=== PATIENT | female | born 1990 | race Caucasian/White ===

== ENCOUNTER 2023-09-09 12:46 | Emergency (ER) | payer MEDICAID ==
[~2023-09-09] VITALS: Ht 165.1 cm; Wt 63.4 kg
[2023-09-09 13:12] VITALS: BP 126/74; PULSE 84; RESP 16; TEMP 98; O2SAT 97
[2023-09-09 13:13] LABS: BASOPHILS # (AUTO) 0.1 X10'3 (0-0.2); BASOPHILS % (AUTO) 0.8 % (0-1); EOSINOPHILS # (AUTO) 0.1 X10'3 (0-0.9); EOSINOPHILS % (AUTO) 1.2 % (0-6); HEMATOCRIT 44.9 % (35.0-45.0); HEMOGLOBIN 15.1 g/dl (12.0-16.0); LYMPHOCYTES # (AUTO) 2.5 X10'3 (1.1-4.8); LYMPHOCYTES % (AUTO) 26.5 % (21-51); MEAN CORPUSCULAR HEMOGLOBIN 29.4 PG (27.0-31.0); MEAN CORPUSCULAR HGB CONC 33.6 g/dL (33.0-36.5); MEAN CORPUSCULAR VOLUME 87.5 FL (78-98); MEAN PLATELET VOLUME 9.3 FL (7.4-10.4); MONOCYTES # (AUTO) 0.7 X10'3 (0-0.9); MONOCYTES % (AUTO) 7.3 % (2-12); NEUTROPHILS # (AUTO) 6.2 X10'3 (1.8-7.7); NEUTROPHILS % (AUTO) 64.2 % (42-75); PLATELET COUNT 295 X10'3 (140-440); RED BLOOD COUNT 5.13 X10'6 (4.20-5.60); RED CELL DISTRIBUTION WIDTH 13.3 % (11.5-14.5); WHITE BLOOD COUNT 9.6 X10'3 (4.5-11.0)
[2023-09-09 13:30] LABS: ALANINE AMINOTRANSFERASE 27 U/L (12-78); ALBUMIN 4.2 G/DL (3.4-5.0); ALBUMIN/GLOBULIN RATIO 1.1 (1.1-1.5); ALKALINE PHOSPHATASE 67 IU/L (46-116); ANION GAP 7 (8-16); BILIRUBIN,TOTAL 0.5 MG/DL (0.1-1.0); BLOOD UREA NITROGEN 9 MG/DL (7-18); CALCIUM 9.2 MG/DL (8.5-10.1); CHLORIDE 101 MMOL/L (99-107); CREATININE 0.69 MG/DL (0.40-0.90); GLUCOSE 82 MG/DL (70-104); SODIUM 134 MMOL/L (135-145); TOTAL CARBON DIOXIDE 25.9 MMOL/L (24-32); TOTAL PROTEIN 8.1 G/DL (6.4-8.2); eCRCL 106 ML/MIN; eGFR > 90 ML/MIN
[2023-09-09 13:37] LABS: PRO BRAIN NATRIURETIC PEPTIDE 36 PG/ML (0-125)
[2023-09-09 13:50] LABS: ASPARTATE AMINO TRANSFERASE 28 U/L (10-37); POTASSIUM 3.5 MMOL/L (3.5-5.1)
[2023-09-09 14:17] LABS: D-DIMER < 0.19 MG/L FEU (0-0.50)
[2023-09-09] MEDS ORDERED: METH4TAB81 PO (14:23)
[2023-09-09] MEDS ORDERED: ALBU18HF2 INH (14:23)
== END 2023-09-09 14:52 | disposition home or self-care (01) ==
LOC: ER 12:47
DX: J20.9 Acute bronchitis, unspecified (principal); R06.02 Shortness of breath; J45.909 Unspecified asthma, uncomplicated; Z79.899 Other long term (current) drug therapy
CPT/HCPCS: 36415; 71045; 80053; 83880; 84484; 85025; 85379; 93005; 99285

== ENCOUNTER 2023-10-12 09:37 | Emergency (ER) | payer MEDICAID ==
[~2023-10-12] VITALS: Ht 165.1 cm; Wt 64.3 kg
[~2023-10-12 09:37] MED LIST: ALBU18HF2 INH; METH4TAB81 PO
[2023-10-12 09:41] VITALS: TEMP 97.8
[2023-10-12 10:19] LABS: BASOPHILS # (AUTO) 0.1 X10'3 (0-0.2); BASOPHILS % (AUTO) 1.5 % (0-1); EOSINOPHILS # (AUTO) 0.1 X10'3 (0-0.9); EOSINOPHILS % (AUTO) 1.3 % (0-6); HEMATOCRIT 42.8 % (35.0-45.0); HEMOGLOBIN 14.1 g/dl (12.0-16.0); LYMPHOCYTES # (AUTO) 1.9 X10'3 (1.1-4.8); LYMPHOCYTES % (AUTO) 31.1 % (21-51); MEAN CORPUSCULAR VOLUME 87.8 FL (78-98); MEAN PLATELET VOLUME 9.1 FL (7.4-10.4); MONOCYTES # (AUTO) 0.5 X10'3 (0-0.9); MONOCYTES % (AUTO) 8.1 % (2-12); NEUTROPHILS # (AUTO) 3.5 X10'3 (1.8-7.7); PLATELET COUNT 259 X10'3 (140-440); RED BLOOD COUNT 4.87 X10'6 (4.20-5.60); WHITE BLOOD COUNT 6.1 X10'3 (4.5-11.0)
[2023-10-12 10:34] LABS: ALANINE AMINOTRANSFERASE 29 U/L (12-78); ALBUMIN 3.8 G/DL (3.4-5.0); ALKALINE PHOSPHATASE 60 IU/L (46-116); ANION GAP 11 (8-16); ASPARTATE AMINO TRANSFERASE 19 U/L (10-37); BILIRUBIN,TOTAL 0.5 MG/DL (0.1-1.0); BLOOD UREA NITROGEN 6 MG/DL (7-18); BUN/CREATININE RATIO 8.8 (10.0-20.0); CALCIUM 8.9 MG/DL (8.5-10.1); CHLORIDE 104 MMOL/L (99-107); CREATININE 0.68 MG/DL (0.40-0.90); GLUCOSE 78 MG/DL (70-104); POTASSIUM 3.6 MMOL/L (3.5-5.1); SODIUM 140 MMOL/L (135-145); TOTAL CARBON DIOXIDE 25.4 MMOL/L (24-32); TOTAL PROTEIN 7.6 G/DL (6.4-8.2); eCRCL 108 ML/MIN; eGFR > 90 ML/MIN
[2023-10-12 10:40] LABS: C-REACTIVE PROTEIN < 0.05 MG/DL (0.0-0.5)
[2023-10-12 10:53] VITALS: BP 114/80; PULSE 78; RESP 16; O2SAT 100
[2023-10-12] MEDS ORDERED: LORazepam 2 mg/ml vial IM ONE (12:40)
[2023-10-12 14:10] LABS: URINE HCG NEGATIVE (NEG)
== END 2023-10-12 15:01 | disposition home or self-care (01) ==
LOC: ER 09:38
DX: R20.2 Paresthesia of skin (principal); R06.02 Shortness of breath; J45.909 Unspecified asthma, uncomplicated; Z79.899 Other long term (current) drug therapy
CPT/HCPCS: 36415; 70450; 80053; 81025; 85025; 85651; 86140; 93971; 96372; 99285; J2060

== ENCOUNTER 2023-10-17 12:50 | Emergency (ER) | payer MEDICAID ==
[~2023-10-17] VITALS: Ht 165.1 cm; Wt 64.6 kg
[2023-10-17 13:00] VITALS: BP 127/75; PULSE 80; RESP 16; TEMP 98.5; O2SAT 99
[2023-10-17] MEDS ORDERED: HYDR-3686 PO (16:27)
== END 2023-10-17 16:48 | disposition home or self-care (01) ==
LOC: ER 12:50
DX: R25.1 Tremor, unspecified (principal); R13.10 Dysphagia, unspecified; R42 Dizziness and giddiness; F41.9 Anxiety disorder, unspecified; J45.909 Unspecified asthma, uncomplicated; J34.3 Hypertrophy of nasal turbinates; Z79.899 Other long term (current) drug therapy
CPT/HCPCS: 70551; 99284

== ENCOUNTER 2025-04-15 11:55 | Emergency (ER) | payer MEDICAID ==
[~2025-04-15] VITALS: Ht 162.6 cm; Wt 65.9 kg
--- NOTE | 2025-04-15 13:37 | Physician Documentation ---
History of Present Illness ~ Chief Complaint: See Chief Complaint Stated Complaint: LOW BLOOD PRESSURE Time Seen by MD: 12:30 OK to notify your PCP?: Yes Primary Medical Doctor: [facility] Source: patient, family Mode of Arrival: POV Exam Limitations: no limitations HPI 34-year-old female who is here with concern about wanting to stop verapamil 180 mg which she has only taken for 2days. She states she took the verapamil for two days but felt the triggered her to have a severe migraine. She was started on it for migraine headaches as well as a vestibular issue. She is followed by a neurologist down at [facility]. She did send a message to the neurologist but given the fact that it is the weekend she states she does not believe she will hear back from him until next week and wanted to know if it would be okay to stopped the medication as she does not want to continue taking it. She was also concerned because when she checked her blood pressure on her home machine that her blood pressure was 80 over 50. Medication Reconciliation Allergies: Coded Allergies: No Known Allergies (Unverified , 04/15/25) Scheduled Methylprednisolone (Medrol Dosepak), 0 PO UD Scheduled PRN Albuterol Sulfate (Ventolin Hfa), 2 PUFFS INH Q4HPRN PRN for wheezing Past Medical History Past Medical History: Asthma, *DERMATOLOGY* Past Surgical History: noncontributory Alcohol Use: None Drug Use: none Review of Systems All Other Systems at this time: Reviewed and Negative Physical Exam Vital Signs: Temperature: 97.5, Source: Temporal, Heart Rate: 84, Respiratory Rate: 16, BP: 135/90, Pulse Oximetry: 100, Weight: 65.910 Oxygen Flow Rate: 0 Physical Exam GENERAL: Alert, no acute distress. HEENT: NCAT, EOMI, PERRL, moist oral mucosa. NECK: Supple, trachea midline. CARDIAC: Regular rate and rhythm, no murmurs, rubs, or gallops. Equal distal pulses. No lower extremity edema, cap refill less than 2 seconds. RESPIRATORY: Equal breath sounds, clear to auscultation bilaterally, no respiratory distress. MUSCULOSKELETAL: Normal range of motion, nontender, no swelling. Normal gait. NEUROLOGICAL: Awake, alert, and oriented x 3. SKIN: Warm/dry, no pallor, no rash. PSYCH: Alert and appropriate. Affect congruent with mood. Speech is clear. Good eye contact. Progress Results/Orders Results/Orders Vital Signs 04/15/25 12:00 Temp 97.5 Pulse 84 Resp 16 B/P (MAP) 135/90 Pulse Ox 100 O2 Flow Rate 0 Medical Decision Making Differential Dx:Considerations: Include: BELLE-Cluster, BELLE-Migraine, BELLE- Hypertensive, BELLE-Muscular contraction, BELLE-Post lumbar puncture, Carbon monoxide toxicity, Close head injuyr, CVA, Fever induced, Hemorrhage-Epidural, Hemorrhage-Intracerebral, Hemorrhage-Subarachnoid, Hemorrhage-Subdural, Mass lesion, Meningitis, Post-traumtic, Pseudotumor cerebri, Sinusitis, Temporal arteritis, Trigeminal neuralgia Departure Time of Disposition: 13:33 Disposition: 01 HOME / SELF CARE / HOMELESS Impression: Primary Impression: Headache Qualified Codes: R51.9 - Headache, unspecified Additional Impression: Medication side effect Condition: Stable Discharge Instructions: General Discharge Instructions Additional Instructions: percentage of people who report headache as side effect of verapamil 1-12% it is safe to discontinue and f/u with your neurologist next week Referrals: NO PRIMARY CARE PROVIDER (PCP) Signature Scribe Signature: x Attestation: ISHAN Courtney Apr 15, 2025 13:37
[2025-04-15 13:40] VITALS: BP 116/80; PULSE 90; RESP 16; TEMP 97.7; O2SAT 96
== END 2025-04-15 13:40 | disposition home or self-care (01) ==
LOC: ER 11:56
DX: R51.9 Headache, unspecified (principal); R03.0 Elevated blood-pressure reading, without diagnosis of hypertension; J45.909 Unspecified asthma, uncomplicated; Z79.899 Other long term (current) drug therapy
CPT/HCPCS: 99282